=== PATIENT | female | born 1975 ===

== ENCOUNTER → 2016-04-30 | Outpatient (REF) | LOC: ZLAB.WCH 15:36 | DX: Z01.89 Encounter for other specified special examinations (principal) ==

== ENCOUNTER → 2018-06-06 | Outpatient (REF) ==
[2018-06-06 18:58] LABS: THYROID STIMULATING HORMONE 3.68 uIU/mL (0.465-4.680)
== END ==
LOC: ZLAB.WCH 17:35
PROVIDERS: Family Medicine
DX: Z01.89 Encounter for other specified special examinations (principal)